=== PATIENT | female | born 1965 | race Caucasian/White ===

== ENCOUNTER → 2024-09-09 08:14 | Outpatient (REF) | payer BC, SELFPAY | LOC: HWRAD 08:14 | PROVIDERS: ATTENDING PHYSICIAN Nurse Practitioner Obstetrics & Gynecology; FAMILY PHYSICIAN Nurse Practitioner Family | DX: N95.0 Postmenopausal bleeding (principal) | CPT/HCPCS: 76830; 76856 ==

== ENCOUNTER → 2024-11-24 09:30 | Outpatient (REF) | payer BC, SELFPAY ==
[2024-11-24 11:22] LABS: Urine Albumin Negative (Neg - Trace); Urine Bilirubin Negative (Negative); Urine Character Clear (Clear); Urine Color Yellow; Urine Glucose Negative (Negative); Urine Ketone Negative (Negative); Urine Leukocyte 2+ (Negative); Urine Nitrite Negative (Negative); Urine Occult Blood 1+ (Negative); Urine Urobilinogen Negative (Neg - 1+)
[2024-11-24 11:29] LABS: % Basophils 0.6 % (0-2); % Eosinophils 0.4 % (0-6); % Immature Granulocytes 0.2 % (0-0.5); % Lymphocytes 30.4 % (20.5-51.1); % Monocytes 5.4 % (1.7-9.3); Absolute Lymphocytes 1.4 10^3/uL (1.2-3.4); Absolute Monocytes 0.3 10^3/uL (0.1-0.6); Absolute Neutrophils 2.9 10^3/uL (1.4-6.5); Hematocrit 42.8 % (37.0-47.0); Hemoglobin 14.9 g/dL (12.0-16.0); Mean Corp Hgb Conc. 34.8 g/dL (33.0-37.0); Mean Platelet Volume 9.8 fL (7.4-10.4); Nucleated Red Blood Cells % 0 %; Platelet Count 228 10^3/uL (130-400); Red Blood Cell Count 4.65 10^6/uL (4.20-5.40); White Blood Cell Count 4.6 10^3/uL (4.8-10.8)
[2024-11-24 12:06] LABS: ALT (SGPT) 26 U/L (0-35); AST (SGOT) 27 U/L (14-36); Albumin 4.8 g/dl (3.5-5.0); Alkaline Phosphatase 76 U/L (38-126); Blood Urea Nitrogen 19 mg/dl (7-17); Calcium 10.6 mg/dl (8.4-10.2); Carbon Dioxide 26 mmol/L (22-30); Chloride 105 mmol/L (98-107); Glucose 92 mg/dl (70-99); HDL Cholesterol 74 mg/dl; LDL Cholesterol, Calculated 105 mg/dl; Potassium 4.1 mmol/L (3.5-5.1); Sodium 142 mmol/L (135-145); Total Bilirubin 0.8 mg/dl (0.2-1.3); Total Cholesterol 197 mg/dl (50-199); Total Protein 7.4 g/dl (6.3-8.2); Triglyceride 92 mg/dl (10-149); Uric Acid 3.2 mg/dl (2.5-6.2); Very Low Density Lipoprotein 18 mg/dl (0-30); eGFR > 60.00
[2024-11-24 12:28] LABS: Urine Amorphous Seen; Urine Squamous Cell >30 /LPF (Few)
[2024-11-24 12:29] LABS: Glycohemoglobin (HgbA1c) 4.8 % (4.0-5.6)
[2024-11-24 12:30] LABS: Urine Red Blood Cell 0-2 /HPF (0-2)
[2024-11-24 16:14] LABS: C-Reactive Protein < 5.00 mg/L (0.0-10.00)
[2024-11-24 16:34] LABS: Free T4 1.17 ng/dl (0.78-2.19); Vitamin D, 25-OH*** 35.7 ng/mL (30-80)
[2024-11-24 16:45] LABS: TSH 0.63 uIU/ml (0.47-4.68)
== END ==
LOC: HWLAB 09:30
PROVIDERS: ATTENDING PHYSICIAN Nurse Practitioner Family
DX: E55.9 Vitamin D deficiency, unspecified (principal); I10 Essential (primary) hypertension; M47.22 Other spondylosis with radiculopathy, cervical region; H90.3 Sensorineural hearing loss, bilateral; E78.2 Mixed hyperlipidemia; M54.6 Pain in thoracic spine; Z83.3 Family history of diabetes mellitus
CPT/HCPCS: 36415; 80053; 80061; 81003; 81015; 82306; 83036; 84439; 84443; 84550; 85025; 86140